=== PATIENT | male | born 1990 | race African-American/Black ===

== ENCOUNTER 2017-11-05 00:03 | Emergency (ER) | payer SELFPAY ==
[2017-11-05] MEDS ORDERED: Ketorolac Tromethamine 30 MG/ML VIAL ONE (00:31)
== END 2017-11-05 00:54 | disposition home or self-care (01) ==
LOC: ERS 00:03
DX: I10 Essential (primary) hypertension; K02.9 Dental caries, unspecified; J45.909 Unspecified asthma, uncomplicated
CPT/HCPCS: 96372; J1885

== ENCOUNTER 2017-12-09 20:42 | Emergency (ER) | payer SELFPAY | END 2017-12-09 22:47 | disposition left against medical advice (07) | LOC: ERS 20:42 | DX: Z53.21 Procedure and treatment not carried out due to patient leaving prior to being seen by health care provider (principal) ==

== ENCOUNTER 2018-03-04 20:11 | Emergency (ER) | payer SELFPAY | END 2018-03-04 22:15 | disposition home or self-care (01) | LOC: ERS 20:11 | DX: R11.2 Nausea with vomiting, unspecified (principal); I10 Essential (primary) hypertension; J45.909 Unspecified asthma, uncomplicated; F17.210 Nicotine dependence, cigarettes, uncomplicated; Z79.899 Other long term (current) drug therapy | CPT/HCPCS: 99283 ==

== ENCOUNTER 2018-04-21 16:43 | Emergency (ER) | payer SELFPAY ==
--- NOTE | 2018-04-21 18:55 | RAD ---
LEFT FOOT THREE VIEWS: HISTORY: Foot pain. No specific injury. FINDINGS: There are no signs of fracture. I do not see any bony periosteal change that would suggest any type of stress type reaction. Tiny calcaneal spurs are present. IMPRESSION: No acute injury. POS: [facility]
== END 2018-04-21 18:02 | disposition home or self-care (01) ==
LOC: ERS 16:43
DX: M25.572 Pain in left ankle and joints of left foot (principal); I10 Essential (primary) hypertension; J45.909 Unspecified asthma, uncomplicated; F17.210 Nicotine dependence, cigarettes, uncomplicated; Z79.899 Other long term (current) drug therapy

== ENCOUNTER 2018-05-21 18:39 | Emergency (ER) | payer OTHER, SELFPAY ==
[2018-05-21 19:15] LABS: #Basophils 0.1 thou/uL (0.0-0.2); #Eosinphils 0.2 thou/uL (0.0-0.7); #Lymphocytes 3.4 thou/uL (1.20-3.40); #Monocytes 0.8 thou/uL (0.11-0.59); #Neutrophils 3.6 thou/uL (1.40-6.50); %Lymphocytes 42.2 % (21.0-51.0); %Monocytes 9.6 % (0.0-10.0); %Neutrophils 44.2 % (42.0-75.0); Mean Corpuscular HGB CONC 32.5 g/dL (32.0-36.0); Mean Platelet Volume 6.5 fL (7.4-10.4); Platelet Count 278 thou/uL (130-400); RBC Distribution Width 12.4 % (11.5-14.5); Red Blood Cell (RBC) Count 4.99 mill/uL (4.70-6.10); White Blood Cell (WBC) Count 8.1 thou/uL (4.8-10.8)
[2018-05-21 19:35] LABS: ALT (SGPT) 33 U/L (8-55); AST (SGOT) 28 U/L (5-34); Albumin 4.4 g/dL (3.5-5.0); Alkaline Phosphatase 47 U/L (40-150); Anion Gap 13 mmol/L (10-20); BUN (Urea Nitrogen) 14 mg/dL (8.9-20.6); Bilirubin, Total Less than 0.2 mg/dL (0.2-1.2); Calc. Creatinine Clearance 0 mL/min (70-130); Calcium 10.3 mg/dL (7.8-10.44); Carbon Dioxide 27 mmol/L (22-29); Chloride 101 mmol/L (98-107); Estimated GFR-MDRD Greater than 90; Globulin 3.7 g/dL (2.4-3.5); Glucose 97 mg/dL (70-105); Lipase 24 U/L (8-78); Potassium 4.1 mmol/L (3.5-5.1); Protein, Total 8.1 g/dL (6.0-8.3); Sodium 137 mmol/L (136-145)
[2018-05-21 19:39] LABS: CKMB 1.8 ng/mL (0-6.6); Troponin I Less than 0.010 ng/mL (< 0.028)
--- NOTE | 2018-05-21 20:03 | RAD ---
PORTABLE AP CHEST X-RAY: 05/21/18 HISTORY: Chest pain which started one hour ago. COMPARISON: 10/11/16. FINDINGS: The cardiac silhouette is magnified by projection. Pulmonary vasculature is within normal limits. The lungs remain clear. There has been no interval change from prior study. IMPRESSION: No acute cardiopulmonary process. POS: [facility]
[2018-05-21] MEDS ORDERED: Ibuprofen 800 MG TAB ONE (20:28)
[2018-05-21 21:42] LABS: Troponin I Less than 0.010 ng/mL (< 0.028)
--- NOTE | 2018-05-25 11:59 | EKG ---
Test Reason : Blood Pressure : / mmHG Vent. Rate : 065 BPM Atrial Rate : 065 BPM P-R Int : 132 ms QRS Dur : 098 ms QT Int : 404 ms P-R-T Axes : 044 054 -20 degrees QTc Int : 420 ms Normal sinus rhythm with sinus arrhythmia ST elevation, consider early repolarization, pericarditis, or injury Abnormal ECG Confirmed by WALESKA ULLOA ([id number]), manager editorial CHENG VELASQUEZ ([id number] on 05/25/2018 11:59:24 AM Referred By: Confirmed By:WALESKA ULLOA
== END 2018-05-21 22:08 | disposition home or self-care (01) ==
LOC: ERS 18:39
DX: R07.89 Other chest pain (principal); I10 Essential (primary) hypertension; I25.2 Old myocardial infarction; F17.210 Nicotine dependence, cigarettes, uncomplicated; Z71.6 Tobacco abuse counseling; Z79.899 Other long term (current) drug therapy
CPT/HCPCS: 36415; 71045; 80053; 82553; 83690; 84484; 85025; 93005; 99406

== ENCOUNTER 2018-06-07 08:33 | Emergency (ER) | payer OTHER ==
[2018-06-07] MEDS ORDERED: Lidocaine 1% w/Epinephrine 1:100K 20 ML VIAL ONE (08:53)
[2018-06-07] MEDS ORDERED: Adacel (T-DAP) 0.5 ML VIAL ONE (09:30)
[2018-06-07] MEDS ORDERED: Bacitracin Zinc 1 Packet ONE (09:30)
== END 2018-06-07 10:01 | disposition home or self-care (01) ==
LOC: ERS 08:33
DX: L02.415 Cutaneous abscess of right lower limb (principal); J45.909 Unspecified asthma, uncomplicated; I25.2 Old myocardial infarction; F17.210 Nicotine dependence, cigarettes, uncomplicated; I10 Essential (primary) hypertension; Z79.899 Other long term (current) drug therapy; Z71.6 Tobacco abuse counseling
CPT/HCPCS: 10061; 87070; 87077; 87186; 87205; 90471; 90715; 99406; J2001

== ENCOUNTER 2018-06-09 12:10 | Emergency (ER) | payer OTHER | END 2018-06-09 12:36 | disposition home or self-care (01) | LOC: ERS 12:10 | DX: L03.115 Cellulitis of right lower limb (principal); J45.909 Unspecified asthma, uncomplicated; I25.2 Old myocardial infarction; F17.210 Nicotine dependence, cigarettes, uncomplicated; I10 Essential (primary) hypertension; Z79.899 Other long term (current) drug therapy | CPT/HCPCS: 99282 ==

== ENCOUNTER 2019-06-03 12:39 | Emergency (ER) | payer OTHER, SELFPAY ==
[2019-06-03 13:34] LABS: #Basophils 0.1 thou/uL (0.0-0.2); #Monocytes 0.8 thou/uL (0.11-0.59); #Neutrophils 4.5 thou/uL (1.40-6.50); %Basophils 0.8 % (0.0-1.0); %Eosinophils 0.7 % (0.0-10.0); %Lymphocytes 26.7 % (21.0-51.0); %Monocytes 10.5 % (0.0-10.0); %Neutrophils 61.3 % (42.0-75.0); Hemoglobin 14.6 g/dL (14.0-18.0); Mean Corpuscular HGB CONC 34.1 g/dL (32.0-36.0); Mean Corpuscular Hemoglobin 28.6 pg (27.0-31.0); Mean Platelet Volume 7.4 fL (7.4-10.4); Platelet Count 267 thou/uL (130-400); RBC Distribution Width 12.8 % (11.5-14.5); Red Blood Cell (RBC) Count 5.09 mill/uL (4.70-6.10); White Blood Cell (WBC) Count 7.3 thou/uL (4.8-10.8)
[2019-06-03 14:08] LABS: ALT (SGPT) 32 U/L (8-55); AST (SGOT) 26 U/L (5-34); Albumin 4.9 g/dL (3.5-5.0); Alkaline Phosphatase 56 U/L (40-110); Anion Gap 16 mmol/L (10-20); BUN (Urea Nitrogen) 15 mg/dL (8.9-20.6); Bilirubin, Total 0.5 mg/dL (0.2-1.2); Calc. Creatinine Clearance 0 mL/min (70-130); Calcium 10.5 mg/dL (7.8-10.44); Carbon Dioxide 22 mmol/L (22-29); Chloride 103 mmol/L (98-107); Estimated GFR-MDRD Greater than 90; Globulin 3.4 g/dL (2.4-3.5); Glucose 96 mg/dL (70-105); Potassium 3.8 mmol/L (3.5-5.1); Protein, Total 8.3 g/dL (6.0-8.3); Sodium 137 mmol/L (136-145)
== END 2019-06-03 14:49 | disposition home or self-care (01) ==
LOC: ERS 12:39
DX: R55 Syncope and collapse (principal); I10 Essential (primary) hypertension; J45.909 Unspecified asthma, uncomplicated; I25.2 Old myocardial infarction; F17.210 Nicotine dependence, cigarettes, uncomplicated
CPT/HCPCS: 80053; 83880; 84484; 85025; 93005

== ENCOUNTER 2022-06-04 06:08 | Emergency (ER) | payer SELFPAY | END 2022-06-04 06:34 | disposition home or self-care (01) | LOC: ERS 06:08 | DX: I10 Essential (primary) hypertension (principal); J45.909 Unspecified asthma, uncomplicated; F17.210 Nicotine dependence, cigarettes, uncomplicated | CPT/HCPCS: 99283 ==